=== PATIENT | female | born 2000 | race Caucasian/White ===

== ENCOUNTER 2024-03-14 11:01 | Outpatient (AMB) | payer OTHER, SELFPAY ==
[2024-03-14 11:03] VITALS: BP 121/73; PULSE 95; O2SAT 98; BMI 28.0
--- NOTE | 2024-03-14 11:03 | MHC.OFFVIS ---
Vital Signs 03/14/24 11:03 Height 5 ft 10 in Weight 195 lb BMI 28.0 BP 121/73 Blood Pressure Location Lt brachial Position Sitting Pulse 95 Pulse Source Pulse Oximeter Pulse Oximetry (%) 98 Oxygen Delivery Method Room Air Intake Visit Reasons: Cervicalgia Allergies bupropion [From Wellbutrin] Allergy (Intermediate, Verified 03/14/24 11:06) Rash spironolactone Allergy (Intermediate, Verified 03/14/24 11:06) Itchy Skin Medication List - Last Reconciled 03/14/24 by Melanie Young desvenlafaxine succinate ER (Pristiq) 70 mg PO DAILY lisdexamfetamine (Vyvanse) 40 mg PO DAILY norgestimate-ethinyl estradiol 0.25-35 mg-mcg (21) 1 tab PO DAILY prednisone 10 mg PO BID propranolol 10 mg PO ONCE HPI Comments Details: Antonio is a very pleasant 23-year-old patient who presents the office today for evaluation management of their chronic bilateral neck pain. Patient has been suffering with this pain for greater than 1 year, denies inciting injury, trauma, fall Pain today is rated as a 9/10. Endorses bilateral neck pain, left worse than right. Constant but worse 1st thing in the morning at the end of the day. States it is not always this bad but currently having a ?flare? Completed 2 courses of physical therapy over the last year, most recently 2 months ago with no improvement Attempted chiropractor without improvement. Acupuncture provided no relief. Utilizes TENs unit and home traction with minimal improvement Patient received trigger point injections with short-term improvement of her symptoms. Had MRI 09/2023, results were reviewed on her phone. As per below Currently wearing a cervical soft collar to help with the pain. PCP recently prescribed prednisone, states this is not helping. Takes cyclobenzaprine only at bedtime. Is able to get some sleep with the use of cyclobenzaprine. Denies shooting, electrical, stabbing pain down either arm In terms of muscle damage condition is described as pulsing, throbbing, pounding, pinching, cramping, dull, sore, hurting, aching, heavy, punishing, shooting, tugging, pulling, wrenching, tiring, stabbing, sharp, tight, squeezing, spreading Pain is negatively impacting patient's enjoyment of life, general activity, sleep, ability to care for himself, ability to function normally, relationships with people, mood and work Denies current use of anticoagulants Denies implantable devices, pacemaker defibrillator [facility] Medical History (Updated 03/14/24 @ 14:26 by Alisia Lazar APRN, CASE HARDENER) Palpitations Endometriosis Anemia Mental health disorder Fatigue Chronic headaches Surgical History (Updated 03/14/24 @ 14:26 by Alisia Lazar APRN, CASE HARDENER) H/O wisdom tooth extraction History of tonsillectomy Review of Systems Const All systems reviewed & are unremarkable except as noted in HPI and below Physical Exam Vital Signs: Last Vital Signs Pulse 95 03/14/24 11:03 BP 121/73 03/14/24 11:03 Pulse Ox 98 03/14/24 11:03 Oxygen Delivery Method Room Air 03/14/24 11:03 BMI result Body Mass Index 28.0 General: awake, alert, oriented. Answers questions appropriately. Fully engaged in examination. Skin: warm, dry, intact HEENT: Normocephalic. Hearing intact. Cardiac: External chest normal in appearance. Respiratory: No cough, audible wheezing or stridor. Abdomen: without gross distension. MS: No obvious swelling or deformities. Able to transition from sit to stand unassisted. Ambulates with bilaterally normal heel strike and toe off Cervical Spine: Visible inspection without gross abnormality, arrived to appointment wearing soft cervical collar. This was removed for examination Moderate tenderness throughout bilateral upper trapezius muscles, right greater than left. Minimally tender to palpation midline cervical vertebrae and cervical paraspinal muscles decreased cervical ROM in all planes Spurling compression test positive BUE strength 5/5 Elvey's tension test negative bilaterally Lhermitte's test negative. Neurological: Oriented to person, place, time and situation. Thought process intact. No gait abnormalities appreciated. Psychiatric: Appropriate mood and affect. Good judgment and insight. Results Reviewed Results Reviewed: 09/27/23 MRI lumbar spine: Results reviewed on patient's phone in their portal Minimal degenerative disc disease C5-C6 without significant spinal canal or foraminal stenosis Assessment & Plan Assessment & Plan (1) Trapezius muscle strain: Code(s): S46.819A - Strain of other muscles, fascia and tendons at shoulder and upper arm level, unspecified arm, initial encounter Category: Medical (2) Myofascial neck pain: Code(s): M54.2 - Cervicalgia Category: Medical (3) Chronic neck pain: Code(s): M54.2 - Cervicalgia; G89.29 - Other chronic pain Category: Medical Plan Antonio is a very pleasant 23-year-old patient who presented to the office today for evaluation and management of her chronic neck pain History, physical exam and provocative testing consistent with myofascial neck pain and trapezius muscle strain Patient has exhausted conservative therapy including PT, chiropractor, acupuncture, massage, injections, [id number] medications, anti-inflammatory medications all without improvement of her pain Discussed diagnosis and options for treatment including diagnostic interventional testing, steroid injections, peripheral nerve stimulation with Sprint, RFA and more permanent neuromodulation. Will schedule for an office to point injections to bilateral trapezius Referral placed to chiropractor New prescription sent for methocarbamol 500 mg p.o. t.i.d. as needed. Patient advised on cautions for use. All questions and concerns have been answered and patient agrees with the plan. Follow up after injections and sooner if needed. Orders: Referrals Chiropractic Referral G89.29 - Other chronic pain, M54.2 - Cervicalgia, S46.819A - Strain of other muscles, fascia and tendons at shoulder and upper arm level, unspecified arm, initial encounter Medications: New methocarbamol No driving while taking this medication. Do no take with alcohol or other [employer] Depressants 500 mg PO TID PRN 90 tabs 1RF muscle spasm Coding Level of Care Code New Pt Level 4 (92182) Diagnoses Trapezius muscle strain S46.819A Myofascial neck pain M54.2 Chronic neck pain M54.2; G89.29
== END 2024-03-14 11:53 | disposition home or self-care (01) ==
PROVIDERS: Visit Provider Registered Nurse Emergency
DX: S46.819A Strain of other muscles, fascia and tendons at shoulder and upper arm level, unspecified arm, initial encounter (principal); M54.2 Cervicalgia; G89.29 Other chronic pain
CPT/HCPCS: 99204

== ENCOUNTER → 2024-03-14 11:01 | Outpatient (BNVA) | payer OTHER, SELFPAY | PROVIDERS: Visit Provider Registered Nurse Emergency ==